=== PATIENT | male | born 1980 | race Caucasian/White ===

== ENCOUNTER 2023-08-08 20:33 | Emergency (ER) | payer OTHER ==
[~2023-08-08] VITALS: Ht 182.9 cm; Wt 64.0 kg
[2023-08-08 21:05] VITALS: BP 142/67; PULSE 56; RESP 18; TEMP 98.6; O2SAT 99
== END 2023-08-08 22:32 | disposition home or self-care (01) ==
LOC: ER 20:33
DX: R51.9 Headache, unspecified (principal); I10 Essential (primary) hypertension
CPT/HCPCS: 99281

== ENCOUNTER 2024-08-07 20:50 | Inpatient (IN) | payer OTHER ==
[~2024-08-07] VITALS: Ht 182.9 cm; Wt 83.5 kg
[2024-08-07 21:24] LABS: EOSINOPHILS % 1.6 % (0.0-5.0); HEMATOCRIT. 41.3 % (42.0-52.0); HEMOGLOBIN. 13.8 g/dL (14.0-18.0); LYMPHOCYTES % 26.4 % (20.0-50.0); MEAN CORPUSCULAR HEMOGLOBIN 30.5 pg (28.0-32.0); MEAN CORPUSCULAR HGB CONC 33.5 g/dL (31.0-37.0); MEAN PLATELET VOLUME 8.8 fl (7.4-10.4); MONOCYTES % 9.1 % (2.0-8.0); NEUTROPHILS % 61.9 % (40.0-76.0); PLATELET 216 x1000/uL (130-400); RED BLOOD CELL COUNT 4.54 mill/uL (4.7-6.1); RED CELL DISTRIBUTION WIDTH 12.8 % (11.6-14.6); WHITE BLOOD COUNT 4.9 x1000/uL (4.5-11.0)
[2024-08-07] MEDS: ASPIRIN 81MG TABLET PO ONE (21:26)
[2024-08-07] MEDS: ONDANSETRON HCL 4MG/2ML INJ IV STA (21:26)
[2024-08-07] MEDS: MORPHINE SULFATE 4 MG/ML INJ (FOR IV/IM USE) IV STA (21:27)
[2024-08-07 21:29] LABS: CLARITY URINE CLEAR (CLEAR); COLOR URINE YELLOW (YELLOW); GLUCOSE URINE NEGATIVE (NEGATIVE); KETONES URINE NEGATIVE (NEGATIVE); LEUKOCYTE ESTERASE URINE NEGATIVE (NEGATIVE); NITRITE URINE NEGATIVE (NEGATIVE); OCCULT BLOOD URINE TRACE (NEGATIVE); PH URINE 6.5 (4.5-8.0); PROTEIN URINE 2+ (NEGATIVE); SPECIFIC GRAVITY URINE 1.005 (1.005-1.030); UROBILINOGEN URINE 0.2 E.U./dL (0.2-1.0)
[2024-08-07 21:32] LABS: CHLORIDE 101 mEq/L (98-107); POTASSIUM 4.1 mEq/L (3.5-5.1); SODIUM 137 mEq/L (136-145)
[2024-08-07 21:33] LABS: CARBON DIOXIDE 27 mEq/L (21-32)
[2024-08-07 21:38] LABS: CREATININE 2.3 mg/dL (0.6-1.3); GLUCOSE 101 mg/dL (70-105); UREA NITROGEN BLOOD 22 mg/dL (9-23)
[2024-08-07 21:40] LABS: ALANINE AMINOTRANSFERASE 16 IU/L (10-49); ALBUMIN 4.8 g/dL (3.2-4.8); ASPARTATE AMINOTRANSFERASE 19 IU/L (<34); BILIRUBIN DIRECT 0.1 mg/dL (<=3.0); BILIRUBIN TOTAL 0.6 mg/dL (0.1-1.0); PROTEIN TOTAL 7.4 g/dL (6.0-8.3); TROPONIN I HIGH SENSITIVITY 47 ng/L (3.0-53)
[2024-08-07 21:56] LABS: BACTERIA URINE TRACE; RBC URINE 0-2 /hpf (0-2); SQUAMOUS EPITHELIAL CELL URINE RARE /lpf (RARE/1+); WBC URINE 0-2 /hpf (0-2)
[2024-08-07 23:19] LABS: TROPONIN I HIGH SENSITIVITY 44 ng/L (3.0-53)
[2024-08-08] MEDS ORDERED: MAGNESIUM/ALUMINUM HYDROXIDE/SIMETHICONE 30ML UDC PO PRN (00:30)
[2024-08-08] MEDS ORDERED: ONDANSETRON HCL 4MG/2ML INJ IV PRN (00:30)
[2024-08-08] MEDS ORDERED: ZOLPIDEM TARTRATE 5MG TABLET PO PRN (00:30)
[2024-08-08] MEDS ORDERED: GUAIFENESIN 200MG/10ML SUGAR FREE UDC PO PRN (00:30)
[2024-08-08] MEDS ORDERED: ACETAMINOPHEN 325MG TABLET PO PRN ×2 (00:30)
[2024-08-08] MEDS ORDERED: IPRATROPIUM/ALBUTEROL 0.5-3(2.5)MG/3ML NEB HHN PRN (00:30)
[2024-08-08] MEDS ORDERED: DOCUSATE SODIUM 100MG CAPSULE PO PRN (00:30)
[2024-08-08 01:02] LABS: TRIGLYCERIDE 57 mg/dL (0-150)
[2024-08-08 01:03] LABS: LDL CHOLESTEROL 100 mg/dL (5-100)
[2024-08-08 01:04] LABS: CHOLESTEROL 160 mg/dL (<200); HDL CHOLESTEROL 57 mg/dL (>55)
[2024-08-08 01:08] LABS: T4 FREE 1.44 ng/dL (0.89-1.76); THYROID STIMULATING HORMONE 1.56 uIU/mL (0.55-4.78)
[2024-08-08] MEDS: CLONIDINE 0.1MG TABLET PO PRN (01:17)
[2024-08-08] MEDS: TAMSULOSIN HCL 0.4MG SR CAPSULE PO SCH (01:17)
[2024-08-08 01:24] LABS: IRON 39 ug/dL (65-175)
[2024-08-08 01:26] VITALS: BP 172/108; PULSE 63; RESP 18; TEMP 36.4; O2SAT 100
[2024-08-08 01:27] LABS: TOTAL IRON BINDING CAPACITY 195 ug/dl (250-425)
[2024-08-08 01:30] VITALS: BP 175/108; PULSE 63; RESP 18; TEMP 36.5
[2024-08-08 03:45] LABS: *AMPHETAMINES SCREEN URINE NEGATIVE (NEGATIVE); *BARBITURATES SCREEN URINE NEGATIVE (NEGATIVE); *BENZODIAZEPINES SCREEN URINE NEGATIVE (NEGATIVE); *COCAINE SCREEN URINE NEGATIVE (NEGATIVE); CANNABINOID URINE SCREEN PRESUMPTIVE POSITIVE (NEGATIVE); ECSTASY MDMA SCREEN URINE NEGATIVE (NEGATIVE); METHADONE URINE SCREEN NEGATIVE (NEGATIVE); OPIATES URINE SCREEN PRESUMPTIVE POSITIVE (NEGATIVE); PHENCYCLIDINE URINE SCREEN NEGATIVE (NEGATIVE)
[2024-08-08] MEDS ORDERED: TRAMADOL 50MG TABLET PO PRN (04:45)
[2024-08-08] MEDS: PANTOPRAZOLE 40MG DR TABLET PO SCH (07:20)
[2024-08-08 08:00] VITALS: BP 135/56; PULSE 56; RESP 18; TEMP 36.2; O2SAT 100
[2024-08-08 08:27] LABS: BASOPHILS % 0.8 % (0.0-2.0); EOSINOPHILS % 2.8 % (0.0-5.0); HEMATOCRIT. 39.3 % (42.0-52.0); HEMOGLOBIN. 13.2 g/dL (14.0-18.0); LYMPHOCYTES % 21.8 % (20.0-50.0); MEAN CORPUSCULAR HEMOGLOBIN 29.9 pg (28.0-32.0); MEAN CORPUSCULAR HGB CONC 33.5 g/dL (31.0-37.0); MEAN CORPUSCULAR VOLUME 89.4 fL (80.0-94.0); MONOCYTES % 6.9 % (2.0-8.0); NEUTROPHILS % 67.7 % (40.0-76.0); PLATELET 174 x1000/uL (130-400); RED BLOOD CELL COUNT 4.39 mill/uL (4.7-6.1); WHITE BLOOD COUNT 4.1 x1000/uL (4.5-11.0)
[2024-08-08 08:49] LABS: CHLORIDE 107 mEq/L (98-107); POTASSIUM 4.2 mEq/L (3.5-5.1); SODIUM 138 mEq/L (136-145)
[2024-08-08 08:50] LABS: CALCIUM 9.5 mg/dL (8.7-10.4); CARBON DIOXIDE 27 mEq/L (21-32)
[2024-08-08 08:52] LABS: CREATINE KINASE MB FRACTION 1.3 ng/mL (0.5-3.6)
[2024-08-08 08:55] LABS: CREATININE 2.3 mg/dL (0.6-1.3); GLUCOSE 96 mg/dL (70-105); UREA NITROGEN BLOOD 22 mg/dL (9-23)
[2024-08-08 08:57] LABS: PHOSPHORUS 3.8 mg/dL (2.5-4.9); VITAMIN B12 SERUM 262 pg/mL (211-911)
[2024-08-08 08:58] LABS: FERRITIN 52 ng/mL (22-322)
[2024-08-08 09:09] LABS: HEPATITIS B SURFACE ANTIGEN NEGATIVE (Negative)
[2024-08-08 09:30] LABS: HEPATITIS A AB IGM NEGATIVE (Negative)
[2024-08-08 09:31] LABS: HEPATITIS B CORE AB IGM NEGATIVE (Negative); HEPATITIS C AB NON REACTIVE (Neg) (Negative)
[2024-08-08 12:00] VITALS: BP 135/87; PULSE 55; RESP 18; TEMP 36.1; O2SAT 100
[2024-08-08 16:00] VITALS: BP 132/85; PULSE 62; RESP 18; TEMP 36.2; O2SAT 100
[2024-08-08 16:44] LABS: CREATINE KINASE MB FRACTION 0.8 ng/mL (0.5-3.6)
[2024-08-08 20:00] VITALS: BP 134/83; PULSE 63; RESP 18; TEMP 36.4; O2SAT 100
[2024-08-08] MEDS ORDERED: NALOXONE HCL 0.4MG/ML VIAL IV PRN (20:15)
[2024-08-09] VITALS: BP 138/81; PULSE 52; RESP 20; TEMP 36.4; O2SAT 100
[2024-08-09 04:00] VITALS: BP 129/86; PULSE 55; RESP 20; TEMP 36.6; O2SAT 100
[2024-08-09 08:00] VITALS: BP 146/83; PULSE 60; RESP 19; TEMP 36.3; O2SAT 100
[2024-08-09 09:08] LABS: BASOPHILS % 0.6 % (0.0-2.0); EOSINOPHILS % 1.9 % (0.0-5.0); HEMATOCRIT. 44.4 % (42.0-52.0); HEMOGLOBIN. 14.5 g/dL (14.0-18.0); LYMPHOCYTES % 19.1 % (20.0-50.0); MEAN CORPUSCULAR HEMOGLOBIN 29.5 pg (28.0-32.0); MEAN CORPUSCULAR HGB CONC 32.6 g/dL (31.0-37.0); MEAN CORPUSCULAR VOLUME 90.4 fL (80.0-94.0); MEAN PLATELET VOLUME 9.4 fl (7.4-10.4); MONOCYTES % 6.5 % (2.0-8.0); NEUTROPHILS % 71.9 % (40.0-76.0); PLATELET 195 x1000/uL (130-400); RED BLOOD CELL COUNT 4.91 mill/uL (4.7-6.1); RED CELL DISTRIBUTION WIDTH 12.7 % (11.6-14.6)
[2024-08-09 09:15] LABS: POTASSIUM 4.6 mEq/L (3.5-5.1)
[2024-08-09 09:17] LABS: CALCIUM 9.8 mg/dL (8.7-10.4)
[2024-08-09 09:20] LABS: CREATININE 2.3 mg/dL (0.6-1.3)
[2024-08-09] MEDS ORDERED: TAMS-54 MT ×2 (09:34→09:46)
[2024-08-09 11:23] VITALS: BP 146/83; PULSE 60; TEMP 97.3; O2SAT 100
[2024-08-10] MEDS ORDERED: FAMOTIDINE 20MG TABLET PO SCH (09:00)
== END 2024-08-09 11:40 | disposition home or self-care (01) | DRG 199 ==
LOC: ER 20:50 → EDBEDREQ 21:14 → 6WST 08-08 00:23 → EDBEDREQ 08-08 00:25 → ENRESERV 08-08 00:36
PROVIDERS: ADMIT Internal Medicine; ATTEND Internal Medicine
DX: I16.0 Hypertensive urgency (principal); N17.9 Acute kidney failure, unspecified; I20.0 Unstable angina; R10.9 Unspecified abdominal pain; N13.30 Unspecified hydronephrosis; N18.32 Chronic kidney disease, stage 3b; F12.90 Cannabis use, unspecified, uncomplicated; I12.9 Hypertensive chronic kidney disease with stage 1 through stage 4 chronic kidney disease, or unspecified chronic kidney disease; D64.9 Anemia, unspecified; N40.0 Benign prostatic hyperplasia without lower urinary tract symptoms; Z82.49 Family history of ischemic heart disease and other diseases of the circulatory system; Z90.5 Acquired absence of kidney
CPT/HCPCS: 36415; 71045; 74176; 80048; 80061; 80076; 80305; 81003; 82550; 82553; 82607; 82728; 83036; 83540; 83550; 83735; 83880; 84100; 84153; 84439; 84443; 84484; 85025; 85379; 86705; 86709; 87340; 93005; 99285; A4606; J2270; J2405